=== PATIENT | male | born 1960 | race Caucasian/White ===

== ENCOUNTER → 2018-01-19 06:26 | Day surgery (SDC) | payer OTHER ==
[~2018-01-19 06:26] MED LIST: Atracurium* 10 MG/ML 10 ML VIAL ONE; Buffered Lidocaine 0.9% SYRIN* 5 ML/SYR SYRINGE INTRADERM ONE; Bupivacaine 0.25% SDV PF* 10 ML VIAL INJ ONE; Bupivacaine 0.5% W/EPI SDV* 30 ML VIAL ONE; Clindamycin 900 MG/D5W BAG(*) 900 MG/50 ML BAG IVPB ONE; Dexamethasone TAB* 4 MG ONE; Dexamethasone TAB* 4 MG PO ONE; DiMENhydriNATE IV* 50 MG/ML VIAL IV PUSH PRN; Famotidine IV* 10 MG/ML 2 ML (20 mg) IV ONE; Famotidine IV* 10 MG/ML 2 ML (20 mg) ONE; KETAMINE HCL* 50 MG/ML 10 ML VIAL ONE; Ketorolac INJ* 30 MG/ML 1 ML VIAL ONE; Lidocaine 2% PF * 5 ML VIAL ONE; Midazolam* 1 MG/ML 5 ML VIAL (5 MG) ONE; Morphine VIAL* 4 MG/ML VIAL (1 ml vial) IV PRN; Naloxone* 0.4 MG/ML 1 ML VIAL IV PRN; Ondansetron ODT TAB* 4 MG ONE; Ondansetron TAB* 4 MG PO ONE; PROCHLORPERAZINE INJ 5 MG/ML 2 ML VIAL IV PRN; PROCHLORPERAZINE INJ 5 MG/ML 2 ML VIAL ONE; Propofol* 10 MG/ML 20 ML BTL IV PUSH ONE; Scopolamine 1.5 mg* PATCH TRANSDERM PRN; Scopolamine PATCH Remove* 1 NOTE MISC PATCH OFF ONE; ceFAZolin 2 GM PREMIX in ORs 0 GM/0 ML BAG IVPB ONE; fentaNYL* 50 MCG/ML 2 ML VIAL (100 MCG VIAL) IV PRN; fentaNYL* 50 MCG/ML 2 ML VIAL (100 MCG VIAL) ONE; fentaNYL* 50 MCG/ML 5 ML VIAL (250 MCG VIAL) ONE; oxyCODONE/Acetamin 5/325 MG* TAB PO PRN
--- NOTE | 2018-01-19 09:54 | RAD ---
CPT II Codes: G9500 Indication: Left patellar fracture, traumatic Fluoroscopic services provided for referring physician for internal fixation of a left patellar fracture. 25.2 seconds of fluoroscopy time was used. 9 spot images demonstrates internal fixation of the patellar fracture. IMPRESSION: Internal fixation patellar fracture.
[2018-01-19 10:50] VITALS: BP 136/83
--- NOTE | 2018-01-19 18:12 | OP ---
DATE OF OPERATION: 01/19/18 - [facility] DATE OF : 64 SURGEON: Kwame Hicks MD RETIREMENT PLAN SPECIALIST: STEPHANIA Rogers. A physician blacksmith assistant was required for the length of the procedure for assistance with positioning, retraction, instrumentation and closure. ANESTHESIOLOGIST: Dr. Lucio Cardenas. ANESTHESIA: General anesthesia, femoral nerve lock, anesthesia, local anesthesia consisting of 20 cc of 0.25% Marcaine with epinephrine. PRE-OP DIAGNOSIS: Left patellar fracture, displaced, comminuted. POST-OP DIAGNOSES: Left patellar fracture, displaced, comminuted. OPERATIVE PROCEDURE: Open reduction internal fixation left patella fracture, displaced, comminuted. ANTIBIOTICS: Clindamycin 900 mg IV. IV FLUIDS: 1600 cc crystalloid. TOURNIQUET TIME: 89 minutes at 300 mmHg. SKIN TO SKIN TIME: 86 minutes. RADIATION EXPOSURE: C-arm. 25 seconds. 0.042 mGy meter squared. SPECIMEN: None. IMPLANTS: Arthrex patella kit was utilized. Two partially threaded cannulated screws, 4.0 were utilized. I used a Fiber-Tape through those cannulated screws and also a second FiberTape as a cerclage. ESTIMATED BLOOD LOSS: Minimal. COMPLICATIONS: None. INDICATIONS FOR PROCEDURE: The patient is a 57-year-old man who sustained his injury on 01/02/18, 17 days preoperatively, with a fall at work. 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 The patient's injury occurred in [place]. He was seen at a medical facility where he had x-rays, was placed in a knee immobilizer and crutches. The patient saw Dr. Urena on 01/07/18 and was referred to me and saw me in clinic on 01/10/18. At that time, I reviewed operative and nonoperative management and recommended operative management. The patient's x-ray showed a significantly displaced patella fracture that appeared as well have some comminution. X-ray showed a clear transverse fracture line. There may also be a longitudinal fracture line in the distal patella. Some time was required for the appropriate Workers Compensation paperwork to go through. I spoke with the patient about the long postoperative rehabilitation from this procedure. DESCRIPTION OF PROCEDURE: The patient signed the written consent in the preoperative holding. Operative extremity was marked in preoperative holding. The patient underwent a femoral nerve block by Dr. Cardenas in preoperative holding. The patient was taken back to the operating room, placed supine on operating room table. Sedated and intubated. Tourniquet was placed around the left proximal thigh. Blankets were placed under the left hemipelvis. The patient's left lower extremity was prepped with chlorhexidine and then ChloraPrep. A draping was performed. Surgical timeout was performed. Esmarch was applied and tourniquet was elevated to 300 mmHg. Anterior midline longitudinal skin incision was made, overlying the extensor mechanism of the knee. I exchanged knives and I incised down to the extensor mechanism. I encountered the fracture site and hematoma. Irrigation. I debrided the fracture edges of the main transverse fracture fragment with a curette and rongeur. There were already tears, arthrotomies, transverse, both medial and lateral to the patella. I noted that the transverse fracture line was rather distal. There was some but not significant amount of articular cartilage distal to the transverse fracture line. I did not go exploring for the distal longitudinal fracture line as I thought this would destabilize the distal fracture fragments. I was able to visualize and feel the undersurface, articular cartilage of the patella from the lateral side, which helped me monitor for reduction. I reduced the patella using suture as well as bone clamps. I brought C-arm in and it demonstrated excellent reduction. I placed two pins longitudinally through the patella. I measured the appropriate length, I drilled over these pins and then placed partially threaded cannulated screws. Intentionally, I erred on these screws being slightly long to ensure that I was fully bicortical. After both screws had been placed I placed FiberTape through the screws. This required longitudinal incisions, small, in the quadriceps tendon as earlier longitudinal incisions times x2 had been required in the patellar tendon to place my initial screws. Tape was tied tightly over the superficial aspect of the patella. I obtained C-arm images, AP, obliques, and lateral that showed excellent reduction of patella and excellent placement of fixation hardware. I was able to let the knee flexed with gravity to 60 degrees, proximally, without any widening at the fracture site. I confirmed no widening with x-ray imaging. I confirmed visually that my screw heads were down to bone and that did radiographically. I next placed a FiberTape in a cerclage fashion circumferentially around the patella. The patella was still nicely mobile side to side, medial to lateral. Irrigation. Closure of the arthrotomies with a glysut-dm-wifud stitches using Vicryl 0 suture. Closure of the patella and quadriceps tendon incision sites with figure of eight stitches using Vicryl 2-0 suture. As well I used Vicryl 2.0 suture to minimize the knots of the FiberTape. Irrigation. I then brought the knee in to approximately 20 degrees of flexion and closed the subcutaneous layer with buried simple stitches using Vicryl 2.0 suture. Closure of the skin with Tone. A 20 mL of 0.25% Marcaine with epinephrine were placed in the subcutaneous tissue about the skin incisions. Xeroform, 4 x 4s, ABDs, sterile Webril, Marco bandage from foot to proximal thigh. The tourniquet was dropped. A knee brace was applied with the knee in full extension. The patient was awakened and transferred to the PACU. DISPOSITION: The patient was sent home when medically stable. He was given Percocet as needed for pain control. Valium as needed for muscle spasm, Keflex for 3 days, and aspirin for 2 weeks, b.i.d. The patient will follow up with me in approximately 10 to 14 days postoperative. The patient is to be in the knee brace locked in extension at all times. He is to be toe touch weightbearing. The patient will hold off on physical therapy until after my first clinic visit , until approximately 3 weeks or so postoperatively. [id number]/CPS #: [id number] MTDD
== END | disposition home or self-care (01) ==
LOC: OR 06:26
PROVIDERS: ATTEND Orthopaedic Surgery
DX: S82.042A Displaced comminuted fracture of left patella, initial encounter for closed fracture (principal); W19.XXXA Unspecified fall, initial encounter; G89.18 Other acute postprocedural pain; Y92.89 Other specified places as the place of occurrence of the external cause; Y99.0 Civilian activity done for income or pay
CPT/HCPCS: 76001; A9270-GY; C1713; J0690; J0780; J1885; J2250; J2704; J3010; J3490; J8540